=== PATIENT | male | born 1975 | race African-American/Black ===

== ENCOUNTER 2018-05-23 20:01 | Emergency (ER) | payer BC, MEDICAID ==
[~2018-05-23] VITALS: Ht 167 cm; Wt 81.0 kg
[2018-05-24] MEDS ORDERED: IBUPROFEN 800MG TABLET PO ONE (02:15)
[2018-05-24 02:42] LABS: BASOPHILS % 0.7 % (0.0-2.0); EOSINOPHILS % 2.6 % (0.0-5.0); HEMATOCRIT. 41.5 % (42.0-52.0); HEMOGLOBIN. 13.8 g/dL (14.0-18.0); MEAN CORPUSCULAR HEMOGLOBIN 29.2 pg (28.0-32.0); MEAN CORPUSCULAR VOLUME 87.9 fL (80.0-94.0); MEAN PLATELET VOLUME 7.6 fl (7.4-10.4); MONOCYTES % 10.7 % (2.0-8.0); PLATELET 364 x1000/uL (130-400); RED BLOOD CELL COUNT 4.72 mill/uL (4.7-6.1); RED CELL DISTRIBUTION WIDTH 14.4 % (11.6-14.6)
[2018-05-24 02:45] LABS: CHLORIDE 104 mEq/L (98-107)
[2018-05-24 03:29] VITALS: BP 130/85
== END 2018-05-24 03:30 | disposition home or self-care (01) ==
LOC: ER 20:01
DX: R59.1 Generalized enlarged lymph nodes (principal); F17.200 Nicotine dependence, unspecified, uncomplicated; F12.10 Cannabis abuse, uncomplicated; Z98.890 Other specified postprocedural states
CPT/HCPCS: 36415; 80048; 85025; 99284